=== PATIENT | male | born 1955 | race Asian ===

== ENCOUNTER 2025-08-14 06:13 | Day surgery (SDC) | payer OTHER ==
[2025-08-13 14:53] VITALS: BMI 27.8
[~2025-08-14 06:13] MED LIST: EPINEPHrine 0.3 MG in Ophthalmic Irrigation Solution 500 ML IRR SCH
[2025-08-14] MEDS ORDERED: Cyclopentolate 1% Opth Drop 2 ML BOT ONE (06:36)
[2025-08-14] MEDS ORDERED: Lidocaine 1% PF 5 ML VIAL ONE ×2 (07:13→08:01)
[2025-08-14] MEDS ORDERED: PROPOFOL 200 MG/20 ML VIAL ONE (08:01)
[2025-08-14] MEDS ORDERED: Maxitrol 0.1% Opth Oint 3.5 GM TUBE ONE (08:01)
[2025-08-14] MEDS ORDERED: Lidocaine 4% PF 5 ML AMP ONE (08:01)
[2025-08-14] MEDS ORDERED: CEFAZOLIN 1 GM VIAL ONE (08:01)
== END 2025-08-14 09:30 | disposition home or self-care (01) ==
LOC: SDC 06:13
PROVIDERS: ATTEND Ophthalmology Retina Specialist
PROC: 08B43ZZ Excision of Right Vitreous, Percutaneous Approach (ICD-10-PCS; principal; 2025-08-14)
DX: H43.311 Vitreous membranes and strands, right eye (principal); I10 Essential (primary) hypertension
CPT/HCPCS: 67041; 87070; 87075; 87116; 87205; 87206; J0166; J2250; J3010; 93005; 93010; J0690; J2704; J3301; J3490

== ENCOUNTER 2025-09-11 06:00 | Day surgery (SDC) | payer OTHER ==
[2025-09-10 11:39] VITALS: BMI 27.8
[2025-09-11] MEDS ORDERED: Cyclopentolate 1% Opth Drop 2 ML BOT ONE (06:12)
[2025-09-11] MEDS ORDERED: Lidocaine 1% PF 5 ML VIAL ONE ×2 (07:21→07:57)
[2025-09-11] MEDS ORDERED: PROPOFOL 200 MG/20 ML VIAL ONE (07:57)
[2025-09-11] MEDS ORDERED: Lidocaine 4% PF 5 ML AMP ONE (07:57)
[2025-09-11] MEDS ORDERED: CEFAZOLIN 1 GM VIAL ONE (07:57)
[2025-09-11] MEDS ORDERED: Maxitrol 0.1% Opth Oint 3.5 GM TUBE ONE (07:57)
== END 2025-09-11 09:13 | disposition home or self-care (01) ==
LOC: SDC 06:00
PROVIDERS: ATTEND Ophthalmology Retina Specialist
PROC: 08T53ZZ Resection of Left Vitreous, Percutaneous Approach (ICD-10-PCS; principal; 2025-09-11)
PROC: 08NF3ZZ Release Left Retina, Percutaneous Approach (ICD-10-PCS; 2025-09-11)
DX: H43.312 Vitreous membranes and strands, left eye (principal); Z98.49 Cataract extraction status, unspecified eye; Z96.1 Presence of intraocular lens
CPT/HCPCS: 67041; J0166; J0690; J1100; J2003; J2704; J3010; J3490